=== PATIENT | male | born 1980 | race African-American/Black ===

== ENCOUNTER 2020-12-07 18:56 | Emergency (ER) | payer MEDICAID ==
[~2020-12-07] VITALS: Ht 177.8 cm; Wt 68.0 kg
[2020-12-07 19:02] VITALS: BP 131/89
--- NOTE | 2020-12-07 20:19 | NUR ---
ATTEMPTED TO CALL PT BACK TO CHAIR A CALLED MULTIPLE TIMES IN LOBBY AND OUTSIDE THE ER ENTRANCE WITH NO RESULTS. FIRST ATTEMPT WILL TRY TWO MORE TIMES BEFORE PT BECOMES LWBS.
--- NOTE | 2020-12-07 20:22 | NUR ---
PATIENT CALLED BACK FROM LOBBY WITH NO RESPONSE. NICK MADE AWARE.
--- NOTE | 2020-12-07 20:38 | NUR ---
PATIENT LEFT WITHOUT BEING SEEN BY DR. POWELL. NO FURTHER CARE PROVIDED FOR PATIENT.
--- NOTE | 2020-12-07 20:38 | NUR ---
PATIENT CALLED BACK FROM LOBBY WITH NO RESPONSE LWBS - [id number].
== END 2020-12-07 20:38 | disposition left against medical advice (07) ==
LOC: MED 18:56
DX: F10.129 Alcohol abuse with intoxication, unspecified (principal); Z53.21 Procedure and treatment not carried out due to patient leaving prior to being seen by health care provider; Y90.9 Presence of alcohol in blood, level not specified